=== PATIENT | female | born 1995 | race Caucasian/White ===

== ENCOUNTER 2017-04-27 21:23 | Emergency (ER) | payer BC ==
[2017-04-27] MEDS ORDERED: GELATIN SPONGE,ABSORBABLE 1 EACH SPONGE TP ONE (21:59)
--- NOTE | 2017-04-27 22:05 | Emergency Department Record ---
History of Present Illness - General Chief Complaint: Laceration(s) Stated Complaint: THUMB LAC Time Seen by Provider: 04/27/17 21:59 Source: Patient Mode of Arrival: Ambulatory Limitations: No limitations - History of Present Illness Initial Commments: pt cut her thumb this am on a mandolin blade and has not been able to get it to stop bleeding. she is on a blood thinner., the lac is a tiny avulsion Onset/Timin -: Hour(s) Location: Other Place: Home Context: Accidental, Sharp object use Associated Symptoms: None Treatments Prior to Arrival: Bandage, Other Treatment Prior to Arrival Comment:: 5 bandage changes and quick clot - Imer Coma Scale Eye Response: (4) Open spontaneously Motor Response: (6) Obeys commands Verbal Response: (5) Oriented Imer Total: 15 - Related Data Hx Tetanus Toxoid Vaccination: Yes Year of Tetanus Vaccination: Unsure Patient Tetanus UTD (within 5 yrs): Yes Home Medications Medication Instructions Recorded Confirmed Last Taken Etonogestrel [Nexplanon] 68 mg SQ DAILY 04/27/17 04/27/17 04/27/17 Fondaparinux Sodium [Arixtra] 5 mg SQ DAILY 04/27/17 04/27/17 04/27/17 Allergies Allergy/AdvReac Type Severity Reaction Status Date / Time Cephalosporins Allergy Intermediate VOMITING Verified 01/18/16 15:30 gentamicin [Gentamicin] Allergy Intermediate PT UNSURE Verified 01/18/16 15:30 OF REACTION tobramycin Allergy Intermediate NAUSEA AND Verified 01/18/16 15:30 VOMITING adhesive tape AdvReac RASH Verified 04/27/17 21:41 Travel Screening - Travel/Exposure Within Last 30 Days Have you traveled within the last 30 days?: No - Travel Symptoms Symptom Screening: None Review of Systems Reviewed: No additional complaints except as noted below Constitutional: Reports: As per HPI. Denies: Chills, Fever, Malaise, Night sweats, Weakness, Weight change Eyes: Reports: As per HPI. Denies: Eye discharge, Eye pain, Photophobia, Vision change ENT: Reports: As per HPI. Denies: Congestion, Dental pain, Ear pain, Epistaxis , Hearing loss, Throat pain Respiratory: Reports: As per HPI. Denies: Cough, Dyspnea, Hemoptysis, Stridor, Wheezes Cardiovascular: Reports: As per HPI. Denies: Arrhythmia, Chest pain, Dyspnea on exertion, Edema, Murmurs, Orthopnea, Palpitations, Paroxysmal nocturnal dyspnea, Rheumatic Fever, Syncope Endocrine: Reports: As per HPI. Denies: Fatigue, Heat or cold intolerance, Polydipsia, Polyuria Gastrointestinal: Reports: As per HPI. Denies: Abdominal pain, Constipation, Diarrhea, Hematemesis, Hematochezia, Melena, Nausea, Vomiting Genitourinary: Reports: As per HPI. Denies: Abnormal menses, Discharge, Dyspareunia, Dysuria, Frequency, Hematuria, Incontinence, Retention, Urgency Musculoskeletal: Reports: As per HPI. Denies: Arthralgia, Back pain, Gout, Joint swelling, Myalgia, Neck pain Skin: Reports: As per HPI. Denies: Bruising, Change in color, Change in hair/ nails, Lesions, Pruritus, Rash Neurological: Reports: As per HPI. Denies: Abnormal gait, Confusion, Headache, Numbness, Paresthesias, Seizure, Tingling, Tremors, Vertigo, Weakness Psychiatric: Reports: As per HPI. Denies: Anxiety, Auditory hallucinations, Depression, Homicidal thoughts, Suicidal thoughts, Visual hallucinations Hematological/Lymphatic: Reports: As per HPI. Denies: Anemia, Blood Clots, Easy bleeding, Easy bruising, Swollen glands Past Medical History - SOCIAL HISTORY Smoking Status: Never smoker Alcohol Use: None Drug Use: None - RESPIRATORY Hx Respiratory Disorders: Yes Hx Asthma: Yes Comment:: Cistic fibrosis - CARDIOVASCULAR Hx Cardio Disorders: Yes Hx Cardiac Cath: Yes Hx CHF: Yes Hx Pacemaker/Defib: Yes Comment:: stradeling tricuspid valve; chiari malformation - NEURO Hx Neuro Disorders: Yes Hx CVA: Yes Hx Headaches: Yes Hx Seizures: Yes Hx TIA: Yes - GI Hx GI Disorders: Yes Hx Abdominal Pain: Yes Hx GI Bleed: Yes Hx Reflux: Yes Hx Nausea/Vomiting: Yes Hx Obstructive Bowel: Yes Hx Wt Loss/Wt Gain: Yes - Hx Genitourinary Disorders: No - ENDOCRINE Hx Endocrine Disorders: No - MUSCULOSKELETAL Hx Musculoskeletal Disorders: Yes Hx Arthritis: Yes Hx Osteoporosis: Yes - PSYCH Hx Psych Problems: Yes Hx Anxiety: Yes Hx Depression: Yes - HEMATOLOGY/ONCOLOGY Hx Hematology/Oncology Disorders: Yes Hx Clotting Problems: Yes Family Medical History Any Significant Family History?: Yes Hx HTN: Mother Physical Exam - General General Appearance: Alert, Oriented x3, Cooperative, Mild distress - Head Head exam: Normal inspection - Eye Eye exam: Normal appearance, PERRL, EOMI Pupils: Normal accommodation - ENT ENT exam: Normal exam, Mucous membranes moist, Normal external ear exam, Normal orophraynx Ear exam: Normal external inspection. negative: External canal tenderness Nasal Exam: Normal inspection. negative: Discharge, Sinus tenderness Mouth exam: Normal external inspection, Tongue normal Teeth exam: Normal inspection. negative: Dental caries Throat exam: Normal inspection. negative: Tonsillar erythema, Tonsillar exudate - Neck Neck exam: Normal inspection, Full ROM. negative: Tenderness - Respiratory Respiratory exam: Normal lung sounds bilaterally. negative: Respiratory distress - Cardiovascular Cardiovascular Exam: Regular rate, Normal rhythm, Normal heart sounds - GI/Abdominal GI/Abdominal exam: Soft, Normal bowel sounds. negative: Tenderness - Rectal Rectal exam: Deferred - exam: Deferred - Extremities Extremities exam: Normal inspection, Full ROM, Normal capillary refill, Tenderness, Other (r thumb has small avulsion of tissue which is oozing blood) - Back Back exam: Reports: Normal inspection, Full ROM. Denies: Muscle spasm, Rash noted, Tenderness - Neurological Neurological exam: Alert, CN II-XII intact, Normal gait, Oriented X3 - Psychiatric Psychiatric exam: Normal affect, Normal mood - Skin Skin exam: Dry, Intact, Normal color, Warm Course Vital Signs 04/27/17 04/27/17 21:36 21:46 Temperature 97.5 F L 97.5 F L Pulse Rate [ 76 Pulse Ox Probe] Respiratory 18 18 Rate Blood Pressure 116/69 [Left Arm] Pulse Ox 98 98 - Reevaluation(s) Reevaluation #1: 04/27/17 22:36 bleeding has stopped Disposition Disposition: Discharge Clinical Impression: Laceration Disposition: Home, Self-Care Condition: (1) Good Instructions: Laceration (ED) Additional Instructions: follow up with family doctor . return sooner if worse Quality - Quality Measures Quality Measures: N/A - Blood Pressure Screening Does Patient Have Any of the Following: No Blood Pressure Classification: Normal BP Reading Systolic Measurement: 116 Diastolic Measurement: 69 Screening for High Blood Pressure: < Normal BP, F/U Not Required > [G8783]
== END 2017-04-27 22:45 | disposition home or self-care (01) ==
LOC: ER 21:23
DX: S61.011A Laceration without foreign body of right thumb without damage to nail, initial encounter (principal); W26.8XXA Contact with other sharp object(s), not elsewhere classified, initial encounter; Y92.009 Unspecified place in unspecified non-institutional (private) residence as the place of occurrence of the external cause
CPT/HCPCS: 99282

== ENCOUNTER 2018-09-16 07:46 | Emergency (ER) | payer BC ==
--- NOTE | 2018-09-16 08:16 | Emergency Department Record ---
History of Present Illness - General Chief Complaint: Headache Migraine Stated Complaint: HEADACHE/NAUSEA/HAS THE FLU Time Seen by Provider: 09/16/18 08:15 Source: Patient, Family (mom at the bedside), RN notes reviewed Mode of Arrival: Ambulatory - History of Present Illness Initial Comments: patient developed tiredness 3 days ago and fever and body aches and seen in [facility] 2 days ago with a diagnosis of flu 2 days ago and on tamaflu not and on amoxil and cipro ear drops for a rupture left TM diagnosised 9 days ago and diagnosised with urgent care and Dr Alvarado office. Going to [facility] and they don't have an appointment yet. Dry heaves and as a baby she had ashia fundoplasty. No diarrhea, she has a dry cough . 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 Pediatic neurology migraines and alessandro one malformation with a decompression in 2006. 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 Last tylenol 2 am today,1000mg. Patient hurts all over and last vomiting episode 2 am today. dry heaves. Patient responds to questions appropriately and sat up appropriately . Onset/Timin -: Days(s) Onset Description: Gradual Location: Diffuse Severity: Moderate Severity scale (1-10): 7 Quality: Other Consistency: Constant Improves With: Nothing Worsens With: None Context: Recent URI Treatments Prior to Arrival: Acetaminophen Treatment Prior to Arrival Comment:: 0200 this AM - Related Data Allergies Allergy/AdvReac Type Severity Reaction Status Date / Time Cephalosporins Allergy Intermediate VOMITING Verified 09/16/18 09:46 gentamicin [Gentamicin] Allergy Intermediate PT UNSURE Verified 09/16/18 09:46 OF REACTION tobramycin Allergy Intermediate NAUSEA AND Verified 09/16/18 09:46 VOMITING NSAIDS (Non-Steroidal Allergy PT UNSURE Verified 09/16/18 09:46 Anti-Inflamma OF REACTION adhesive tape AdvReac RASH Verified 09/16/18 09:46 Travel Screening - Travel/Exposure Within Last 30 Days Have you traveled within the last 30 days?: No - Travel/Exposure Within Last Year Have you traveled outside the [place] in the last year?: No - Additonal Travel Details Have you been exposed to anyone with a communicable illness?: No - Travel Symptoms Symptom Screening: None Review of Systems Reviewed: No additional complaints except as noted below Constitutional: Reports: As per HPI, Fever. Denies: Chills, Malaise, Night sweats, Weakness, Weight change Eyes: Reports: As per HPI. Denies: Eye discharge, Eye pain, Photophobia, Vision change ENT: Reports: As per HPI, Throat pain. Denies: Congestion, Dental pain, Ear pain, Epistaxis, Hearing loss Respiratory: Reports: As per HPI, Cough. Denies: Dyspnea, Hemoptysis, Stridor, Wheezes Cardiovascular: Reports: As per HPI. Denies: Arrhythmia, Chest pain, Dyspnea on exertion, Edema, Murmurs, Orthopnea, Palpitations, Paroxysmal nocturnal dyspnea, Rheumatic Fever, Syncope Endocrine: Reports: As per HPI. Denies: Fatigue, Heat or cold intolerance, Polydipsia, Polyuria Gastrointestinal: Reports: As per HPI, Abdominal pain, Vomiting. Denies: Constipation, Diarrhea, Hematemesis, Hematochezia, Melena, Nausea Genitourinary: Reports: As per HPI. Denies: Abnormal menses, Discharge, Dyspareunia, Dysuria, Frequency, Hematuria, Incontinence, Retention, Urgency Musculoskeletal: Reports: As per HPI, Myalgia, Other (total body pain). Denies : Arthralgia, Back pain, Gout, Joint swelling, Neck pain Skin: Reports: As per HPI. Denies: Bruising, Change in color, Change in hair/ nails, Lesions, Pruritus, Rash Neurological: Reports: As per HPI. Denies: Abnormal gait, Confusion, Headache, Numbness, Paresthesias, Seizure, Tingling, Tremors, Vertigo, Weakness Psychiatric: Reports: As per HPI. Denies: Anxiety, Auditory hallucinations, Depression, Homicidal thoughts, Suicidal thoughts, Visual hallucinations Hematological/Lymphatic: Reports: As per HPI. Denies: Anemia, Blood Clots, Easy bleeding, Easy bruising, Swollen glands Past Medical History - SOCIAL HISTORY Smoking Status: Never smoker Alcohol Use: None Drug Use: None - RESPIRATORY Hx Respiratory Disorders: Yes Hx Asthma: Yes Comment:: Cistic fibrosis - CARDIOVASCULAR Hx Cardio Disorders: Yes Hx Cardiac Cath: Yes Hx CHF: Yes Hx Pacemaker/Defib: Yes Comment:: stradeling tricuspid valve; chiari malformation - NEURO Hx Neuro Disorders: Yes Hx CVA: Yes Hx Headaches: Yes Hx Seizures: Yes Hx TIA: Yes - GI Hx GI Disorders: Yes Hx Abdominal Pain: Yes Hx GI Bleed: Yes Hx Reflux: Yes Hx Nausea/Vomiting: Yes Hx Obstructive Bowel: Yes Hx Wt Loss/Wt Gain: Yes - Hx Genitourinary Disorders: No - ENDOCRINE Hx Endocrine Disorders: No - MUSCULOSKELETAL Hx Musculoskeletal Disorders: Yes Hx Arthritis: Yes Hx Osteoporosis: Yes - PSYCH Hx Psych Problems: Yes Hx Anxiety: Yes Hx Depression: Yes - HEMATOLOGY/ONCOLOGY Hx Hematology/Oncology Disorders: Yes Hx Clotting Problems: Yes Family Medical History Any Significant Family History?: Yes Hx HTN: Mother Physical Exam - General General Appearance: Alert, Oriented x3, Cooperative, No acute distress - Head Head exam: Normal inspection - Eye Eye exam: Normal appearance, PERRL Pupils: Normal accommodation - ENT ENT exam: Normal exam, Mucous membranes moist, Normal external ear exam, Normal orophraynx, TM's normal bilaterally Ear exam: Normal external inspection. negative: External canal tenderness Nasal Exam: Normal inspection. negative: Discharge, Sinus tenderness Mouth exam: Normal external inspection, Tongue normal Teeth exam: Normal inspection. negative: Dental caries Throat exam: Normal inspection. negative: Tonsillar erythema, Tonsillar exudate - Neck Neck exam: Normal inspection, Full ROM, Other (moves her head freely around with extension and flexion and side to side). negative: Meningismus, Tenderness - Respiratory Respiratory exam: Normal lung sounds bilaterally. negative: Respiratory distress - Cardiovascular Cardiovascular Exam: Regular rate, Normal rhythm, Normal heart sounds - GI/Abdominal GI/Abdominal exam: Soft, Normal bowel sounds. negative: Tenderness - Rectal Rectal exam: Deferred - exam: Deferred - Extremities Extremities exam: Normal inspection, Full ROM, Normal capillary refill. negative: Tenderness - Back Back exam: Reports: Normal inspection, Full ROM. Denies: Muscle spasm, Rash noted, Tenderness - Neurological Neurological exam: Alert, Normal gait, Oriented X3, Reflexes normal - Psychiatric Psychiatric exam: Normal affect, Normal mood - Skin Skin exam: Dry, Intact, Normal color, Warm Course Vital Signs 09/16/18 08:03 Temperature 98.2 F Pulse Rate 67 Respiratory 18 Rate Blood Pressure 100/67 Pulse Ox 97 patient feeling slightly better and her color looks better and most likely headache caused by influenza and also talked with her mom about using norco and she wants to stay with tylenol and fluids and follow up with Dr Ramirez in 1-2 days - Reevaluation(s) Reevaluation #1: patient drank juice and ate toast 09/16/18 12:23 Reevaluation #2: glucose was 66 and gave her juice and toast 09/16/18 12:24 Medical Decision Making - Data Complexity MDM Data: Labs Ordered and/or Reviewed (WBC 5,800), X-Ray Ordered and/or Reviewed (CT head nothing acute) - Lab Data Result diagrams: 09/16/18 07:50 09/16/18 07:50 Disposition Clinical Impression: Influenza B, Dehydration Head ache Qualifiers: Headache type: unspecified Headache chronicity pattern: acute headache Intractability: not intractable Qualified Code(s): R51 - Headache Disposition: Home, Self-Care Condition: (2) Stable Instructions: Influenza (ED), Acute Headache (ED) Additional Instructions: follow up with Dr Ramirez in 1-2 days continue tamiflu BID till gone Forms: Patient Portal Access Time of Disposition: 12:26 Quality - Quality Measures Quality Measures: N/A - Blood Pressure Screening Does Patient Have Any of the Following: No Blood Pressure Classification: Normal BP Reading Systolic Measurement: 100 Diastolic Measurement: 67 Screening for High Blood Pressure: < Normal BP, F/U Not Required > [G8783]
[2018-09-16] MEDS ORDERED: 0.9 % SODIUM CHLORIDE 1,000 ML BAG IV ONE (08:47)
[2018-09-16] MEDS ORDERED: ACETAMINOPHEN 1,000 MG/100 ML BTL IVPB ONE (08:50)
[2018-09-16 08:58] LABS: BASO % 0.5 % (0-6); EOS % 2.3 % (0-6); GRAN % 57.4 % (47-80); HEMATOCRIT 44.3 % (35.0-47.0); LYMPH % 29.7 % (16-45); MEAN CORPUSCULAR HEMOGLOBIN 30.1 pg (27-33); MEAN CORPUSCULAR HGB CONC 33.9 g/dl (32-36); MEAN PLATELET VOLUME 8.9 fl (7.4-10.4); MONO % 10.1 % (0-9); PLATELET COUNT 379 K/uL (130-400); RED BLOOD COUNT 4.98 M/uL (3.80-5.40); RED CELL DISTRIBUTION WIDTH 12.3 % (11.5-14.5); WHITE BLOOD COUNT W/O DIFF 5.8 K/uL (4.2-12.2)
[2018-09-16 09:08] LABS: BLOOD UREA NITROGEN 16 mg/dL (6-20); CREATININE 0.7 mg/dL (0.5-0.9); EST GLOMERULAR FILTRATION RATE > 60 mL/min
[2018-09-16 09:09] LABS: LIPASE 46 U/L (13-60); TOTAL PROTEIN 7.8 g/dL (6.6-8.7)
[2018-09-16 09:11] LABS: GLUCOSE,RANDOM 66 mg/dL (74-109)
[2018-09-16 09:14] LABS: ALBUMIN 4.8 g/dL (4.0-5.0); ALKALINE PHOSPHATASE 60 U/L (45-87); ALT/SGPT 14 U/L (<33); AST/SGOT 15 U/L (10.0-35.0); BILIRUBIN,DIRECT < 0.2 mg/dL (0-0.3)
[2018-09-16 12:09] LABS: URINE APPEARANCE CLEAR; URINE BILIRUBIN NEGATIVE (NEGATIVE); URINE BLOOD LARGE (NEGATIVE); URINE COLOR YELLOW; URINE GLUCOSE (UA) NEGATIVE (NEGATIVE); URINE KETONE 15 mg/dL (NEGATIVE); URINE LEUKOCYTE ESTERASE SMALL (NEGATIVE); URINE NITRITE NEGATIVE (NEGATIVE); URINE PROTEIN NEGATIVE (NEGATIVE); URINE UROBILINOGEN 0.2 E.U./dL (0.20 - 1.00)
[2018-09-16 12:24] LABS: URINE BACTERIA 2+; URINE EPITHELIAL CELLS 16 - 20 (FEW)
--- NOTE | 2018-09-17 10:03 | RADIOLOGY REPORT ---
EXAM: CHEST, TWO VIEWS HISTORY: FEVER, FLU, HISTORY OF OPEN HEART SURGERY. TECHNIQUE: Two views of the chest were obtained. Comparison: Chest radiograph 02/09/18. FINDINGS: Postoperative changes to the mediastinum as well as an implanted cardiac device. The cardiac silhouette is within normal size limits. Mild linear densities in the right mid lung are similar from prior, may represent chronic scarring. No new focal pulmonary consolidation. No pleural effusion or pneumothorax. IMPRESSION: ABOVE. JOB NUMBER: [id number] [facility]
--- NOTE | 2018-09-17 10:52 | CT SCAN REPORT ---
EXAM: NONCONTRAST CT OF THE HEAD HISTORY: HEADACHE FOR FOUR TO FIVE DAYS, HISTORY OF CHIARI DECOMPRESSION IN 2005. TECHNIQUE: Noncontrast CT of the head was obtained. Comparison: CT of the head 09/20/09. FINDINGS: Occipital region post surgical changes compatible with history of previous decompression. There is a small right frontal bone, the frontal bone which is unchanged from prior and also most likely related to prior surgery. Somewhat linear hypodense area within the right parietal lobe extending centrally, closely approximating the right lateral ventricle, unchanged appearance from prior study. No midline shift, mass effect, or abnormal intra or extraaxial fluid collection. No cerebral edema, focal mass or intracranial hemorrhage is detected. The ventricles sizes are stable from prior study. The basal cisterns are not effaced. IMPRESSION: 1. NO ACUTE INTRACRANIAL FINDINGS. 2. SIMILAR APPEARANCE OF LOW DENSITY DEFECT IN THE RIGHT PARIETAL LOBE. THIS COULD REPRESENT AN AREA OF ENCEPHALOMALACIA RELATED TO PREVIOUS INFARCT OR SURGERY, OR POSSIBLY EXENCEPHALI. 3. POST SURGICAL CHANGES INVOLVING THE RIGHT FRONTAL BONE AND OCCIPITAL REGION. JOB NUMBER: [id number] [facility]
== END 2018-09-16 12:45 | disposition home or self-care (01) ==
LOC: ER 07:46
DX: J10.1 Influenza due to other identified influenza virus with other respiratory manifestations (principal); E86.0 Dehydration; R51 Headache; R11.2 Nausea with vomiting, unspecified; R53.83 Other fatigue; G93.5 Compression of brain; E84.9 Cystic fibrosis, unspecified; I50.9 Heart failure, unspecified; Z86.73 Personal history of transient ischemic attack (TIA), and cerebral infarction without residual deficits
CPT/HCPCS: 36416; 70450; 71046; 80048; 80076; 81001; 82948; 83690; 85025; 96365; 99284; J7030